=== PATIENT | female | born 1980 | race American Indian/Alaskan Native ===

== ENCOUNTER 2018-04-11 20:05 | Emergency (ER) | payer SELFPAY ==
[2018-04-11 20:58] VITALS: BP 161/109
--- NOTE | 2018-04-11 22:53 | Cat Scan Report ---
FINAL REPORT PROCEDURE: CT HEAD/BRAIN WO CON TECHNIQUE: Computerized tomography of the head was performed without contrast material. HISTORY: headache COMPARISON: No prior studies are available for comparison. FINDINGS: Skull and scalp: Normal. Paranasal sinuses: Normal. Ventricles and subarachnoid spaces: Normal. Cerebrum: No evidence of hemorrhage, acute infarction or mass . Cerebellum and brainstem: No evidence of hemorrhage, acute infarction or mass. Vasculature: Normal. Comments: Adenoid hypertrophy is noted.. IMPRESSION: No acute intracranial abnormality Adenoid hypertrophy
[2018-04-12] MEDS ORDERED: BENADRYL IV ONE (00:54)
[2018-04-12] MEDS ORDERED: REGLAN IV ONE (00:54)
[2018-04-12] MEDS ORDERED: SUBLIMAZE IV ONE (01:22)
[2018-04-12] MEDS ORDERED: XYLOCAINE TOPICAL 4% TP ONE (01:22)
--- NOTE | 2018-04-12 01:22 | Emergency Department Report ---
ED Headache HPI - General Chief Complaint: Headache Stated Complaint: HEADACHE Time Seen by Provider: 04/12/18 01:00 Source: patient, RN notes reviewed Exam Limitations: no limitations - History of Present Illness Initial Comments: This is a 38-year-old female who is not known to this provider. She has a past medical history of hypertension. She reports that she is not and she has not delivered her given within the past 2 months. She presents to the ER with a headache. The headache is right-sided, retro-orbital, but was initially bitemporal. The headache has been present for 3 days, has been constant, and it was worse on the third day. The headache is not sudden or thunderclap in nature. He did not reach maximal intensity within an hour. There is no neck pain or neck stiffness. There is no vomiting. Patient endorses mild sensitivity to sound and light. Her last headache was a few months ago. She gets them infrequently. She reports family history of intracranial aneurysm in her father, but no other first-degree relatives with aneurysm. Timing/Duration: other Quality: moderate Head Injury Location: frontal Recent Head Trauma: occasional headaches Associated Symptoms: denies: confusion, fatigue, facial pain, fever/chills, flushing, loss of consciousness, nausea/vomiting, nasal congestion, nasal drainage, numbness in legs/feet, rash, seizures, sinus infection, stiff neck, weakness Allergies/Adverse Reactions: Allergies No Known Allergies Allergy (Verified 04/11/18 20:52) Home Medications: Ambulatory Orders Butalb/Acetaminophen/Caffeine [Fioricet 50-300-40 mg CAP] 1 cap PO Q6HR PRN #15 cap 04/12/18 ED Review of Systems ROS: Stated complaint: HEADACHE Other details as noted in HPI Constitutional: denies: fever Eyes: denies: eye discharge ENT: denies: epistaxis Respiratory: denies: cough Cardiovascular: denies: chest pain Gastrointestinal: denies: abdominal pain Neurological: headache ED Past Medical Hx - Past Medical History Previous Medical History?: Yes Hx Hypertension: Yes - Surgical History Past Surgical History?: Yes Additional Surgical History: c section - Social History Smoking Status: Never Smoker Substance Use Type: None, Alcohol - Medications Home Medications: Home Medications Medication Instructions Recorded Confirmed Last Taken Type Butalb/Acetaminophen/Caffeine 1 cap PO Q6HR PRN #15 cap 04/12/18 Unknown Rx [Fioricet 50-300-40 mg CAP] ED Physical Exam - General Limitations: No Limitations General appearance: alert, in no apparent distress - Head Head exam: Present: atraumatic, normocephalic - Eye Eye exam: Present: normal appearance, PERRL, EOMI, other (visual acuity intact to finger counting, color perception, reading at a close distance). Absent: nystagmus - ENT ENT exam: Present: normal exam, normal orophraynx, mucous membranes moist, TM's normal bilaterally, normal external ear exam - Neck Neck exam: Present: normal inspection, full ROM. Absent: tenderness, meningismus - Respiratory Respiratory exam: Present: normal lung sounds bilaterally. Absent: respiratory distress, chest wall tenderness - Cardiovascular Cardiovascular Exam: Present: regular rate, normal rhythm, normal heart sounds. Absent: bradycardia, tachycardia, irregular rhythm, systolic murmur, diastolic murmur, rubs, gallop - GI/Abdominal GI/Abdominal exam: Present: soft. Absent: distended, tenderness, guarding, rebound, rigid, pulsatile mass - Extremities Exam Extremities exam: Present: normal inspection, full ROM, normal capillary refill , other (2+ pulses noted in the bilateral upper, lower extremities. Compartments soft. No long bony tenderness. The pelvis is stable.). Absent: pedal edema, joint swelling, calf tenderness - Back Exam Back exam: Present: normal inspection, full ROM. Absent: tenderness, CVA tenderness (R), paraspinal tenderness, vertebral tenderness - Neurological Exam Neurological exam: Present: alert, oriented X3, CN II-XII intact, other ( Extraocular movements intact. Tongue midline. No facial droop. Facial sensation intact to light touch in the V1, V2, V3 distribution bilaterally. 5 and 5 strength in 4 extremities.. Sensation is intact to light touch in 4 extremities.). Absent: motor sensory deficit - Psychiatric Psychiatric exam: Present: normal affect, normal mood - Skin Skin exam: Present: warm, dry, intact, normal color. Absent: rash ED Course Vital Signs 04/11/18 04/11/18 20:09 20:53 Temperature 98.9 F 98.9 F Pulse Rate 80 87 Respiratory 18 16 Rate Blood Pressure 174/120 161/109 O2 Sat by Pulse 100 96 Oximetry - Reevaluation(s) Reevaluation #1: 04/12/18 01:30 Differential diagnosis, including the not limited to: Migraine headache, tension headache, cluster headache, headache, etiology not otherwise specified Assessment and plan: 38-year-old female with migratory headache, initially bitemporal, now retro-orbital, present for 3 days, not sudden or thunderclap in nature, has not reached maximal intensity within the first hour, and basically constant for the past 3 days. Her family history is appreciated, but given that she only reports one first-degree relative with confirmed aneurysm, as preferred screening recommendations from up-to-date, screening for aneurysm is not recommended. The patient will be treated symptomatically. A noncontrast CT scan of the brain was ordered prior to my personally evaluated the patient and was negative. She has a GCS of 15, with an NIH score of 0. She will be treated with Reglan, Benadryl, intranasal lidocaine, and supplemental oxygen therapy. Reevaluation #2: 04/12/18 02:04 The patient is reexamined. She indicates that she feels much improved. Her repeat neurologic examination is within normal limits and she walks with a steady gait. The patient's elevated blood pressure is reviewed and appreciated , and does not require emergent intervention at this time. Please reference the [employer] clinical policy on hypertension that is not symptomatic. Critical care attestation.: If time is entered above; I have spent that time in minutes in the direct care of this critically ill patient, excluding procedure time. ED Disposition Clinical Impression: Headache Disposition: DC-01 TO HOME OR SELFCARE Is pt being admited?: No Does the pt Need Aspirin: No Condition: Stable Instructions: Acute Headache (ED) Additional Instructions: Take the medication as needed/directed. Follow up with outpatient neurology specialist or primary care doctor within the next 2 to weeks. Return to the ER right away with pain, worsening pain, migration of pain, projectile vomiting, change in mental status, confusion, inability to tolerate liquids. Prescriptions: Butalb/Acetaminophen/Caffeine [Fioricet 50-300-40 mg CAP] 1 cap PO Q6HR PRN #15 cap PRN Reason: Headache Referrals: DAVID AVENDAÑO MD [Primary Care Provider] - 3-5 Days DAVID WEIR MD [Referring] - 3-5 Days XIN BARNES MD [Staff Physician] - 3-5 Days JORGE LUIS MOHAMUD MD [Staff Physician] - 3-5 Days
== END 2018-04-12 02:10 | disposition home or self-care (01) ==
LOC: ED 20:05
DX: R51 Headache (principal); I10 Essential (primary) hypertension
CPT/HCPCS: 70450; 96374; 96375; 99284; J1200; J2765